=== PATIENT | female | born 1975 | race Hispanic/Latino ===

== ENCOUNTER 2019-02-04 03:18 | Emergency (ER) | payer SELFPAY ==
[~2019-02-04] VITALS: Ht 165.1 cm; Wt 65.8 kg
[2019-02-04] MEDS ORDERED: LEVOXYL25 MCG PO (03:27)
[2019-02-04] MEDS ORDERED: CLEOCIN HCL300 MG PO (03:28)
[2019-02-04] MEDS ORDERED: ADDERALL 10 MG10 MG PO (03:28)
[2019-02-04] MEDS ORDERED: ACETAMINOPHEN500 MG PO (03:29)
[2019-02-04] MEDS ORDERED: IBUPROFEN200 MG PO (03:30)
[2019-02-04] MEDS ORDERED: KEFLEX500 MG PO (04:10)
--- OUTSIDE RECORDS SUMMARY | 2019-02-04 05:40 | XMS ---
PreManage Notification: SULEIMAN LU Security Pediatric Clinical Dietician Events No recent Security Events currently on file CRITERIA MET - [facility] C[facility] PROVIDERS [facility] HAND Internal Medicine 12/28/2016-Current PHONE: Unknown PEACE FARRIS Primary Care 12/28/2016-Current KARTIK PHONE: Unknown MODE DIALLO Primary Care 12/28/2016-Current MEDICAL ANABELA PHONE: [phone] Burak has no Care Guidelines for this patient. E.D. VISIT COUNT (12 MO.) 1 [facility] 1 Javi SavageRosi 1 Myah Bee TOTAL 4 NOTE: Visits indicate total known visits. ED/UCC VISIT TRACKING (12 MO.) 02/04/2019 03:19 AMANDEEP Amin [place] TYPE: Emergency COMPLAINT: - FACIAL SWELLING 06/15/2018 20:20 Myah Lynne [place] TYPE: Emergency COMPLAINT: - MOUTH INFECTION DIAGNOSES: 0. Candidal stomatitis 2. Procedure and treatment not carried out due to patient leaving prior to being seen by health care provider 06/14/2018 13:53 Javi OLEA TYPE: Emergency COMPLAINT: - POSSIBLE ALLERGIC REACTION TO RX - ADVERS EFFECT SULFONAMIDES INIT ENC DIAGNOSES: 0. Adverse effect of sulfonamides, initial encounter 1. Adverse effect of sulfonamides, initial encounter 3. Urinary tract infection, site not specified 4. Attention-deficit hyperactivity disorder, unspecified type 5. Other specified places as the place of occurrence of the external cause 6. Acquired absence of both cervix and uterus 7. Other drier take off tender (current) drug therapy 8. Allergy status to penicillin 05/29/2018 15:53 [facility] TYPE: Emergency COMPLAINT: - SHORT OF BREATH DIAGNOSES: - Allergic rhinitis, unspecified INPATIENT VISIT TRACKING (12 MO.) No inpatient visits to display in this time frame [id number]
== END 2019-02-04 04:22 | disposition home or self-care (01) ==
LOC: ED 03:18
DX: G89.18 Other acute postprocedural pain (principal); K08.89 Other specified disorders of teeth and supporting structures; E03.9 Hypothyroidism, unspecified; M32.9 Systemic lupus erythematosus, unspecified; Z90.710 Acquired absence of both cervix and uterus; Z91.09 Other allergy status, other than to drugs and biological substances; Z79.899 Other long term (current) drug therapy
CPT/HCPCS: 96372; 99283-25; J0696